=== PATIENT | male | born 1995 | race Caucasian/White ===

== ENCOUNTER 2022-05-20 19:34 | Emergency (ER) | payer SELFPAY ==
[~2022-05-20] VITALS: Ht 180.3 cm; Wt 72.3 kg
[2022-05-20 20:30] VITALS: BP 134/71
[2022-05-20 20:36] LABS: BASOPHILS % (AUTO) 0.3 % (0.0-2.0); EOSINOPHILS % (AUTO) 0.1 % (1.0-6.0); HEMATOCRIT 43.4 % (41-53); HEMOGLOBIN 14.5 g/dL (13.5-17.5); LYMPHOCYTES # (AUTO) 1.9 K/uL (1.0-4.8); LYMPHOCYTES % (AUTO) 12.9 % (22.0-44.0); MEAN CORPUSCULAR HEMOGLOBIN 25.8 pg (26.0-34.0); MEAN CORPUSCULAR HGB CONC 33.3 G/dL (31.0-37.0); MEAN CORPUSCULAR VOLUME 77 fL (80-100); MONOCYTES % (AUTO) 6.4 % (2.0-9.0); NEUTROPHILS # (AUTO) 12.1 K/uL (1.8-7.7); NEUTROPHILS % (AUTO) 80.3 % (40.0-70.0); PLATELET COUNT (AUTO) 252 K/uL (150-450); RED BLOOD CELL COUNT(AUTO) 5.61 MIL/uL (4.50-5.90); RED CELL DISTRIBUTION WIDTH 14.3 % (11.5-14.5)
[2022-05-20 20:45] LABS: ANION GAP 11 mmol/L (8-16); CALCIUM, TOTAL 9.3 mg/dL (8.8-10.5); CARBON DIOXIDE 26 mmol/L (22-29); CHLORIDE 104 mmol/L (98-107); CREATININE 1.02 mg/dL (0.60-1.30); GLUCOSE,RANDOM 97 mg/dL (70-110); POTASSIUM 3.6 mmol/L (3.5-5.1); SODIUM SERUM 141 mmol/L (136-145); UREA NITROGEN, BLOOD 9 mg/dL (7-18)
[2022-05-20 20:51] LABS: ALANINE AMINOTRANSFERASE 20 U/L (12-78); ALBUMIN 4.8 g/dL (3.4-5.0); ALKALINE PHOSPHATASE 58 U/L (46-116); ASPARTATE AMINOTRANSFERASE 21 U/L (15-37); BILIRUBIN,TOTAL 0.3 mg/dL (0.1-1.0); GLOMERULAR FILTR. RATE CALC > 60 mL/min (>60); TOTAL PROTEIN, SERUM 8.2 g/dL (6.4-8.2)
[2022-05-20 21:28] LABS: AMPHET/METH SCREEN,URINE NEGATIVE (NEGATIVE); BARBITURATE SCREEN, URINE NEGATIVE (NEGATIVE); BENZODIAZEPINES SCREEN,URINE NEGATIVE (NEGATIVE); CANNABINOID SCREEN,URINE POSITIVE (NEGATIVE); COCAINE SCREEN,URINE NEGATIVE (NEGATIVE); METHADONE SCREEN, URINE NEGATIVE (NEGATIVE); OPIATE SCREEN,URINE NEGATIVE (NEGATIVE)
[2022-05-20 21:30] LABS: PHENCYCLIDINE SCREEN,URINE NEGATIVE (NEGATIVE)
== END 2022-05-21 06:30 | disposition left against medical advice (07) ==
LOC: EMS 19:36
DX: S60.221A Contusion of right hand, initial encounter (principal); F60.0 Paranoid personality disorder; Y04.8XXA Assault by other bodily force, initial encounter; Y93.89 Activity, other specified; Y92.89 Other specified places as the place of occurrence of the external cause; Y99.8 Other external cause status
CPT/HCPCS: 99285; 80053; 85025; 36415; 73130; 80307; G0480

== ENCOUNTER 2022-05-21 12:04 | Inpatient (IN) | payer SELFPAY ==
[~2022-05-21] VITALS: Ht 170.2 cm; Wt 145.0 kg
[2022-05-21] MEDS ORDERED: LORazepam 1 MG TABLET PO ONE (13:45)
[2022-05-21] MEDS ORDERED: OLANZapine 5 MG RAPDIS TABLET PO PRN (14:15)
[2022-05-21] MEDS ORDERED: ZOLPIDEM TARTRATE 10 MG TABLET PO PRN (14:15)
[2022-05-21] MEDS ORDERED: TUBERCULIN, PURIFIED PROTEIN DERIVATIVE 5 TU/0.1 ML SYRINGE ID ONE (14:45)
[2022-05-21] MEDS ORDERED: PROMETHAZINE HCL 25 MG TABLET PO PRN (14:45)
[2022-05-21] MEDS ORDERED: ACETAMINOPHEN 325 MG TABLET PO PRN (14:45)
[2022-05-21] MEDS ORDERED: HydrOXYzine PAMOATE 50 MG CAPSULE PO PRN (14:45)
[2022-05-21] MEDS ORDERED: GuaiFENesin/D-METHORPHAN [SUGAR-FREE] 200-20MG/10 ML SYRUP UDCUP PO PRN (14:45)
[2022-05-21] MEDS ORDERED: MAGNESIUM HYDROXIDE SUSPENSION 30 ML UDCUP PO PRN (14:45)
[2022-05-21] MEDS ORDERED: LOPERAMIDE HCL 2 MG CAPSULE PO PRN (14:45)
[2022-05-21] MEDS ORDERED: MAG HYDROX/AL HYDROX/SIMETH ES 30 ML SUSPENSION UDCUP PO PRN (14:45)
[2022-05-21 19:51] LABS: COVID AG,FIA SOURCE NASOPHARYNGEAL
[2022-05-21] MEDS: THIAMINE 100 MG TABLET PO SCH (22:18)
[2022-05-21] MEDS: MELATONIN 5 MG TABLET PO SCH (22:18)
[2022-05-21] MEDS: DIVALPROEX SODIUM 250 MG ER TABLET PO SCH (22:19)
[2022-05-21] MEDS: LORazepam 2 MG TABLET PO PRN (22:19)
[2022-05-21] MEDS: OLANZapine 5 MG RAPDIS TABLET PO SCH (22:19)
[2022-05-21 23:07] VITALS: BP 133/74
[2022-05-22 07:24] LABS: HEMOGLOBIN A1C 5.7 % (3.8-5.6)
[2022-05-22 07:49] LABS: CHOL/HDL RATIO 2.2 (4.2-7.3); FREE T4 (FREE THYROXINE) 1.43 ng/dL (0.76-1.46); THYROID STIMULATING HORMONE 1.11 uIU/mL (0.36-3.74)
[2022-05-22] MEDS: FOLIC ACID 1 MG TABLET PO SCH (09:32)
[2022-05-22] MEDS: MULTIVITAMINS WITH MINERALS, THERAPEUTIC TABLET PO SCH (09:33)
[2022-05-22] MEDS: LORazepam 2 MG TABLET PO PRN (09:33)
[2022-05-22] MEDS: THIAMINE 100 MG TABLET PO SCH ×2 (09:33→16:46)
[2022-05-22] MEDS: NALTREXONE HCL 50 MG TABLET PO SCH (09:33)
[2022-05-22] MEDS: OMEGA-3/DHA/EPA/FISH OIL 1,000 MG CAPSULE PO SCH (09:38)
[2022-05-22 10:01] VITALS: BP 121/65
[2022-05-22] MEDS: OLANZapine 5 MG RAPDIS TABLET PO SCH (20:36)
[2022-05-22] MEDS: MELATONIN 5 MG TABLET PO SCH (20:36)
[2022-05-22] MEDS: DIVALPROEX SODIUM 250 MG ER TABLET PO SCH (20:36)
[2022-05-22 21:28] VITALS: BP 115/80
[2022-05-23 09:07] VITALS: BP 124/73
[2022-05-23] MEDS: OMEGA-3/DHA/EPA/FISH OIL 1,000 MG CAPSULE PO SCH (09:31)
[2022-05-23] MEDS: THIAMINE 100 MG TABLET PO SCH ×2 (09:31→17:17)
[2022-05-23] MEDS: FOLIC ACID 1 MG TABLET PO SCH (09:32)
[2022-05-23] MEDS: NALTREXONE HCL 50 MG TABLET PO SCH (09:32)
[2022-05-23] MEDS: MULTIVITAMINS WITH MINERALS, THERAPEUTIC TABLET PO SCH (09:35)
[2022-05-23] MEDS: LORazepam 2 MG TABLET PO PRN (10:17)
[2022-05-23] MEDS ORDERED: ALBUTEROL SULFATE HFA 90 MCG/PUFF 8 GM INHALER IH PRN (11:00)
[2022-05-23] MEDS ORDERED: OLAN5TAB94 PO (16:48)
[2022-05-23] MEDS ORDERED: MELA5TAB40 PO ×2 (16:48→17:41)
[2022-05-23] MEDS ORDERED: DIVA-85 PO ×2 (16:48→17:39)
[2022-05-23] MEDS ORDERED: OMEG-135 PO ×2 (16:48→17:43)
[2022-05-23] MEDS ORDERED: NALT50TA PO (16:48)
[2022-05-23] MEDS ORDERED: NALT50TA6 PO (17:42)
[2022-05-23] MEDS ORDERED: OLAN7.5T22 PO (17:42)
== END 2022-05-23 20:53 | disposition home or self-care (01) | DRG 885 ==
LOC: EMS 12:04 → B3A 20:29 → UNDOADMIN 20:29 → B3A 05-22 08:12
PROVIDERS: ADMIT Psychiatry & Neurology Psychiatry; ATTEND Psychiatry & Neurology Psychiatry
PROC: 3E0234Z Introduction of Serum, Toxoid and Vaccine into Muscle, Percutaneous Approach (ICD-10-PCS; principal; 2022-05-21)
DX: F20.9 Schizophrenia, unspecified (principal); F17.200 Nicotine dependence, unspecified, uncomplicated; M79.641 Pain in right hand; F12.10 Cannabis abuse, uncomplicated; D72.829 Elevated white blood cell count, unspecified; Z20.822 Contact with and (suspected) exposure to COVID-19; Z23 Encounter for immunization
CPT/HCPCS: 80061; 83036; 84439; 84443; 86592; 99285; Q9967